=== PATIENT | male | born 1975 | race Caucasian/White ===

== ENCOUNTER 2020-04-09 09:18 | Inpatient (IN) | payer OTHER ==
[~2020-04-09] VITALS: Ht 180.3 cm; Wt 63.5 kg
--- NOTE | 2020-04-09 09:18 | Emergency Room Report ---
History of Present Illness General Source: Patient, EMS Present Illness HPI 44-year-old male with history of polysubstance use presents with diffuse abdominal pain since eating "bad [place] food" yesterday around 10 PM. Patient woke up this morning with epigastric pain, nausesa, and copious nonbloody diarrhea, nonbloody nonbilious vomiting, and nausea. Patient states he smoked meth in order to alleviate the pain, which did not work. Denies fever, flank pain, hematuria, melena, hematochezia, chest pain, cough, shortness of breath, rash, headache, visual changes or any other symptoms. He is unaware of any recent sick contacts. No recent travel or hospitalization. The patient's symptoms were gradual onset, severity was moderate, duration since 1 day. Quality: Gassy cramping, Past medical history: Polysubstance abuse Past surgical history: Denies Smoking: ++ Alcohol use: Denies Drug use: ++ Meth and marijuana Review of systems: CONST: No fevers or chills, No night sweats PULMONARY: No productive cough, No shortness of breath CARDIAC: No chest pain, No palpitations GI: ++ vomiting, ++ diarrhea , No melena_or_BRBPR : No dysuria, No hematuria, No discharge NEURO: No new_focal_weakness_or_numbness, No confusion, No vision changes 14 point Review of Systems is otherwise negative except per HPI Physical Exam: GENERAL: Awake_alert_ nontoxic, no acute distress Spo2 98% on RA -normal EYES: Extraocular muscles are intact. Conjunctivae clear. Lids without swelling ENT: External nose and ear normal_in_appearance. Oropharynx clear. Head_atraumatic, dry_oral_mucosa NECK: No JVD. No meningismus. No thyromegaly. Supple. Trachea midline RESP: Normal respiratory effort. Symmetric rise. No stridor. Clear_to_auscultation_No_rales_No_wheezes CARDIAC: Regular rate and regular rhytm. No_significant pedal edema. ABDOMEN: Soft. Nondistended. Epigastric TTP. Negative murphys sign_No_rebound_or_guarding. Negative Mayorga sign. Negative Rovsing's, negative psoas, negative obturator. No masses MSK: Normal muscle tone, without rigidity. Extremities without asymmetric defo rmity or swelling. SKIN: Warm and dry. No visible cyanosis or pallor NEUROLOGIC: Alert, oriented x3. Motor_and_sensation_grossly_intact. No truncal ataxia. Gait_normal Psych: Normal mood and affect, normal judgment and insight - COORDINATION OF CARE Case was discussed with: Patient Any labs and imaging that were ordered were interpreted as part of the medical decision making: Medical Decision Making/Plan: Differential diagnosis includes cholecystitis, choledocholithiasis, hepatitis, small bowel obstruction, volvulus, AAA, pancreatitis, atypical appendicitis, gastroparesis, gastritis, peptic ulcer disease, among others. Patient is well appearing with stable vital signs. Abdominal exam is non peritoneal with no guarding or rebound. Labs show pancreatitis. Lipase is greater than 1000. No concomitant acidosis. LFTs are within normal range. He is found to have nonspecific leukocytosis of 20. UDS is positive for meth and marijuana EKG shows normal sinus rhythm. No ischemia. NS, zofran, cipro, flagyl given. Pain was controlled with morphine. CT scan and right upper quadrant ultrasound were unremarkable. Found incidental renal cysts and kidney stone.. No obstructive uropathy. The patient denies any bloody stool and has no pain out of proportion to exam, and no significant risk factors for mesenteric ischemia such as atrial fibrillation or severe PAD/PVD (peripheral arterial / vascular disease), thus definitive workup to rule out mesenteric ischemia was not pursued. The patients symptoms are not consistent with ACS (acute coronary syndrome), symptoms are not exertional, EKG without obvious ischemic change. I spoke with Dr. Conway, and reviewed the patients presentation, workup, results, and treatment. They will admit the patient for further care and evaluation, and assume care of the patient at this time. Allergies: Coded Allergies: No Known Allergies (Unverified , 04/09/20) Physical Exam Sp02 EP Interpretation: reviewed, normal Medical Decision Making Diagnostic Impression: Primary Impression: Pancreatitis Additional Impressions: Polysubstance abuse Nausea & vomiting Methamphetamine abuse Marijuana abuse Renal cyst Kidney stone on right side EKG Diagnostic Results Troponin ordered: Yes When was troponin ordered?: Apr 09, 2020 EKG Time: 09:28 Rate: normal Rhythm: NSR ST Segments: no acute changes ASA given to the pt in ED: No PA Scribe Text 12-lead EKG (interpreted by me) Time: 0 952 Indication: Rhythm analysis Tracing visualized and Interpreted by me. Rhythm: Normal sinus rhythm Rate: 77 bpm QTc: 459 Morphology: No_significant_ST_elevations_or_depressions, No STEMI Impression: Normal_sinus_rhythm_without_significant_abnormality Rhythm Strip Diag. Results Rhythm Strip Time: 09:28 EP Interpretation: yes Rate: 84 Rhythm: NSR, no PVC's, no ectopy CT/MRI/US Diagnostic Results CT/MRI/US Diagnostic Results : Impression CT Abdomen Pelvis WO Contrast Findings: Lack of enteric contrast limits assessment of the GI tract. No evidence of diverticulosis or diverticulitis. The appendix is probably normal, not well-demonstrated due to opacity of body fat. The stomach is markedly distended, contains liquid, gas, and food. No definite small bowel distention. No free or loculated intraperitoneal gas or fluid is evident. The distal esophagus demonstrates mild wall thickening. Impression: Very limited assessment of the GI tract, due to lack of enteric contrast menstruation Markedly distended fluid, gas, and food filled stomach. Etiology/significance uncertain. Gastric outlet obstruction not completely excludable, although no definite obstructive lesion is demonstrated. Mild distal esophageal wall thickening, could indicate esophagitis No evidence of small bowel obstruction Nonobstructive left lower pole intrarenal calculus Minimal basilar pulmonary dependent atelectatic changes Diagnostic POCUS Bedside Ultrasound Diagnostics: Comment US ABD Complete Indication: Abdominal pain Findings: Gallbladder is unremarkable, without stones, wall thickening, nor pericholecystic fluid. Sonographic Mayorga's sign is negative. Common bile duct measures 4 mm in diameter. No intrahepatic biliary ductal dilatation. Liver demonstrates normal echogenicity, no focal abnormality. Portal vein and hepatic veins are patent. Pancreas is incompletely visualized due to overlying bowel gas, visualized portions are unremarkable. Spleen is unremarkable. Left kidney measures 12.6 cm in length. Right kidney measures 11.6 cm length. Both kidneys demonstrate normal echogenicity. There is no hydronephrosis. Right renal cyst is not clearly evident on the prior CT scan. Abdominal aorta is partially obscured by bowel gas, visualized portions are non-aneurysmal . Some debris is seen within the bladder Impression: Negative for gallstones, dilated bile ducts or other acute or significant abnormality Debris within the bladder. This is a nonspecific finding. Incidental finding right renal cyst Reevaluation Time: 10:01 Status: improved Disposition: ADMITTED INPATIENT Admit Decision Time: 10:30 Condition: Stable Scripts No Active Prescriptions or Reported Meds Lisa Rico D.O. Apr 09, 2020 09:18
[2020-04-09] MEDS ORDERED: Ketorolac 30mg Inj IV ONE (09:30)
[2020-04-09] MEDS ORDERED: Ciprofloxacin 500mg tab ORAL ONE (09:30)
[2020-04-09] MEDS ORDERED: metroNIDAZOLE 500mg tab ORAL ONE (09:30)
[2020-04-09 09:59] LABS: APPEARANCE,URINE CLEAR; BILIRUBIN, URINE NEGATIVE (NEGATIVE); GLUCOSE, URINE (UA) NEGATIVE (NEGATIVE); HEMATOCRIT 50.3 % (42.0-52.0); HEMOGLOBIN 16.2 G/DL (14.2-18.0); KETONES,URINE 1+ (NEGATIVE); LEUKOCYTE ESTERASE ,URINE 1+ (NEGATIVE); MEAN CORPUSCULAR VOLUME 99 FL (80-99); NITRITE,URINE NEGATIVE (NEGATIVE); PH,URINE 5 (4.5-8.0); PLATELET COUNT 545 K/UL (150-450); PROTEIN,URINE 1+ (NEGATIVE); RED CELL DISTRIBUTION WIDTH 13.6 % (11.6-14.8); UROBILINOGEN,URINE NORMAL MG/DL (0.0-1.0); WHITE BLOOD COUNT 20.7 K/UL (4.8-10.8)
[2020-04-09 10:00] VITALS: BP 139/91
[2020-04-09 10:02] LABS: COLOR,URINE YELLOW
[2020-04-09 10:09] LABS: ANION GAP 9 mmol/L (5-15); BLOOD UREA NITROGEN 12 mg/dL (7-18); CALCIUM 8.8 MG/DL (8.5-10.1); CARBON DIOXIDE 29 MMOL/L (21-32); CHLORIDE 104 MMOL/L (98-107); CREATININE 0.9 MG/DL (0.55-1.30); POTASSIUM 4.1 MMOL/L (3.5-5.1); SODIUM 142 MMOL/L (136-145)
[2020-04-09 10:14] LABS: ALANINE AMINOTRANSFERASE 32 U/L (12-78); ALBUMIN 4.2 G/DL (3.4-5.0); ALKALINE PHOSPHATASE 94 U/L (46-116); ASPARTATE AMINO TRANSFERASE 17 U/L (15-37); BILIRUBIN,TOTAL 0.4 MG/DL (0.2-1.0); CREATINE KINASE 72 U/L (26-308)
[2020-04-09] MEDS ORDERED: Morphine Sulfate 4mg/ml Inj (IV USE ONLY) IVP ONE (10:30)
--- NOTE | 2020-04-09 11:09 | Diagnostic Imaging Report ---
Indication: Diffuse abdominal pain, epigastric pain, nausea, diarrhea, vomiting since yesterday Technique: Spiral acquisitions obtained through the abdomen and pelvis. No oral contrast utilized, per emergency room physician request No IV contrast utilized, per emergency room physician request.. Multiplanar reconstructions were generated. Total dose length product 225 mGycm. CTDIvol(s) 3 mGy. Dose reduction achieved using automated exposure control Comparison: None Findings: Lack of enteric contrast limits assessment of the GI tract. No evidence of diverticulosis or diverticulitis. The appendix is probably normal, not well-demonstrated due to opacity of body fat. The stomach is markedly distended, contains liquid, gas, and food. No definite small bowel distention. No free or loculated intraperitoneal gas or fluid is evident. The distal esophagus demonstrates mild wall thickening. Lack of IV contrast limits assessment of the solid organs. The liver, gallbladder, bile ducts, pancreas, spleen, adrenals, right kidney are unremarkable. The left kidney demonstrates a punctate lower pole calyceal calculus. No ureteral calculi, hydronephrosis, or hydroureter. No pelvic mass or adenopathy. No retroperitoneal or mesenteric mass or adenopathy. There are posterior pulmonary dependent atelectatic changes. The bones are unremarkable. Impression: Very limited assessment of the GI tract, due to lack of enteric contrast menstruation Markedly distended fluid, gas, and food filled stomach. Etiology/significance uncertain. Gastric outlet obstruction not completely excludable, although no definite obstructive lesion is demonstrated. Mild distal esophageal wall thickening, could indicate esophagitis No evidence of small bowel obstruction Nonobstructive left lower pole intrarenal calculus Minimal basilar pulmonary dependent atelectatic changes The CT scanner at [facility] is accredited by the [employer] and the scans are performed using protocols designed to limit radiation exposure to as low as reasonably achievable to attain images of sufficient resolution adequate for diagnostic evaluation.
[2020-04-09 12:00] VITALS: BP 143/88
[2020-04-09 12:51] LABS: HEMATOCRIT 39.7 % (42.0-52.0); HEMOGLOBIN 13.2 G/DL (14.2-18.0); MEAN CORPUSCULAR VOLUME 99 FL (80-99); PLATELET COUNT 404 K/UL (150-450); RED BLOOD COUNT 4.01 M/UL (4.70-6.10); RED CELL DISTRIBUTION WIDTH 13.6 % (11.6-14.8); WHITE BLOOD COUNT 15.9 K/UL (4.8-10.8)
--- NOTE | 2020-04-09 13:17 | Diagnostic Imaging Report ---
Indication: Abdominal pain Technique: Gómez-scale and duplex images of the upper abdomen were obtained Comparison: No comparison sonograms. Reference made to CT scan earlier the same day Findings: Gallbladder is unremarkable, without stones, wall thickening, nor pericholecystic fluid. Sonographic Mayorga's sign is negative. Common bile duct measures 4 mm in diameter. No intrahepatic biliary ductal dilatation. Liver demonstrates normal echogenicity, no focal abnormality. Portal vein and hepatic veins are patent. Pancreas is incompletely visualized due to overlying bowel gas, visualized portions are unremarkable. Spleen is unremarkable. Left kidney measures 12.6 cm in length. Right kidney measures 11.6 cm length. Both kidneys demonstrate normal echogenicity. There is no hydronephrosis. Right renal cyst is not clearly evident on the prior CT scan. Abdominal aorta is partially obscured by bowel gas, visualized portions are non-aneurysmal . Some debris is seen within the bladder Impression: Negative for gallstones, dilated bile ducts or other acute or significant abnormality Debris within the bladder. This is a nonspecific finding. Incidental finding right renal cyst
[2020-04-09 14:02] VITALS: BP 109/71
--- NOTE | 2020-04-09 15:22 | General Progress Note ---
Subjective ROS Limited/Unobtainable: Yes Allergies: Coded Allergies: No Known Allergies (Unverified , 04/09/20) Objective Last 24 Hour Vital Signs Date Time Temp Pulse Resp B/P (MAP) Pulse Ox O2 Delivery O2 Flow Rate FiO2 04/09/20 14:02 98.4 85 16 109/71 99 Room Air 04/09/20 12:00 98.4 84 18 143/88 96 Room Air 04/09/20 10:00 98.8 89 18 139/91 97 Room Air 04/09/20 09:20 99.0 84 18 132/98 (109) 96 Room Air Laboratory Tests 04/09/20 09:30: White Blood Count 20.7H, Red Blood Count 5.10, Hemoglobin 16.2, Hematocrit 50.3, Mean Corpuscular Volume 99, Mean Corpuscular Hemoglobin 31.9H, Mean Corpuscular Hemoglobin Concent 32.3, Red Cell Distribution Width 13.6, Platelet Count 545H, Mean Platelet Volume 5.0L, Neutrophils (%) (Auto) , Lymphocytes (%) (Auto) , Monocytes (%) (Auto) , Eosinophils (%) (Auto) , Basophils (%) (Auto) , Differential Total Cells Counted 100, Neutrophils % (Manual) 80H, Lymphocytes % (Manual) 5L, Monocytes % (Manual) 3, Eosinophils % (Manual) 1, Basophils % (Manual) 0, Band Neutrophils 11H, Platelet Estimate IncreasedH, Platelet Morphology Normal, Red Blood Cell Morphology Normal, Prothrombin Time 11.4, Prothromb Time International Ratio 1.0, Activated Partial Thromboplast Time 28, Urine Color Yellow, Urine Appearance Clear, Urine pH 5, Urine Specific [place] 1.025, Urine Protein 1+H, Urine Glucose (UA) Negative, Urine Ketones 1+H, Urine Blood 2+H, Urine Nitrite Negative, Urine Bilirubin Negative, Urine Urobilinogen Normal, Urine Leukocyte Esterase 1+H, Urine RBC 2-4H, Urine WBC 0, Urine Squamous Epithelial Cells None, Urine Amorphous Sediment ModerateH, Urine Bacteria Few, Sodium Level 142, Potassium Level 4.1, Chloride Level 104, Carbon Dioxide Level 29, Anion Gap 9, Blood Urea Nitrogen 12, Creatinine 0.9, Estimat Glomerular Filtration Rate > 60, Glucose Level 90, Calcium Level 8.8, Total Bilirubin 0.4, Aspartate Amino Transf (AST/SGOT) 17, Alanine Aminotransferase (ALT/SGPT) 32, Alkaline Phosphatase 94, Total Creatine Kinase 72, Troponin I 0.000, Total Protein 8.5H, Albumin 4.2, Globulin 4.3, Albumin/Globulin Ratio 1.0, Lipase 1056H, Urine Opiates Screen Negative, Urine Barbiturates Screen Negative, Phencyclidine (PCP) Screen Negative, Urine Amphetamines Screen PositiveH, Urine Benzodiazepines Screen Negative, Urine Cocaine Screen Negative, Urine Marijuana (THC) Screen PositiveH 04/09/20 12:30: White Blood Count 15.9H, Red Blood Count 4.01L, Hemoglobin 13.2L, Hematocrit 39.7L, Mean Corpuscular Volume 99, Mean Corpuscular Hemoglobin 33.0H, Mean Corpuscular Hemoglobin Concent 33.4, Red Cell Distribution Width 13.6, Platelet Count 404, Mean Platelet Volume 5.2L, Neutrophils (%) (Auto) , Lymphocytes (%) (Auto) , Monocytes (%) (Auto) , Eosinophils (%) (Auto) , Basophils (%) (Auto) , Differential Total Cells Counted 100, Neutrophils % (Manual) 89H, Lymphocytes % (Manual) 2L, Monocytes % (Manual) 5, Eosinophils % (Manual) 0, Basophils % (Manual) 0, Band Neutrophils 4, Platelet Estimate Adequate, Platelet Morphology Normal, Red Blood Cell Morphology Normal Height (Feet): 6 Weight (Pounds): 140 General Appearance: alert EENT: PERRL/EOMI Neck: supple Cardiovascular: normal rate Respiratory/Chest: decreased breath sounds Abdomen: soft, hypoactive bowel sounds, tender Extremities: non-tender Assessment/Plan Assessment/Plan: Primary Impression: Pancreatitis Esophagitis Polysubstance abuse Nausea & vomiting Methamphetamine abuse Marijuana abuse Renal cyst Kidney stone on right side ? gastric out let obstruction gastroenteritis npo ivf pain control ppi bid repeat labs EGD when more stable Vitaliy Weaver MD Apr 09, 2020 15:22
[2020-04-09 16:20] VITALS: BP 112/76
[2020-04-09] MEDS ORDERED: Morphine Sulfate 2mg/ml Inj(IV/IM USE ONLY) IVP PRN (17:15)
[2020-04-09] MEDS: D5 1/2NS 1,000 ML IV SCH (17:39)
--- NOTE | 2020-04-09 18:30 | History and Physical Report ---
DATE OF ADMISSION: 04/09/2020 TIME SEEN: 2 p.m. HOME ASSESSMENT NURSE: Vitaliy Weaver MD CHIEF COMPLAINT: Diarrhea, abdominal pain, methamphetamine use, pancreatitis, esophagitis. BRIEF HISTORY: This is a 44-year-old male presented to [facility] with above-mentioned diagnoses. Currently lethargic in bed, not really responding to questions. REVIEW OF SYSTEMS: Unavailable. PAST MEDICAL HISTORY: Includes drug abuse, right kidney stone. PAST SURGICAL HISTORY: Unknown. MEDICATIONS: Include Zofran, morphine, metronidazole, Cipro, ketorolac. ALLERGIES: Denies. SOCIAL HISTORY: Unable to obtain due to patient's lethargy. PHYSICAL EXAMINATION: GENERAL: Lethargic in bed, not really answering questions. VITAL SIGNS: Temperature is 98 degrees, pulse 85, respirations 16, blood pressure 109/71. CARDIOVASCULAR: No murmur. LUNGS: Distant and clear. ABDOMEN: Bowel sounds positive. Nontender, nondistended. EXTREMITIES: No cyanosis, clubbing, or edema. NEUROLOGIC: Patient moves all extremities, slightly weak. LABORATORY AND DIAGNOSTIC DATA: Labs at this time show white count 15.9, hemoglobin and hematocrit 13/39, platelets 404. BMP is normal. Troponin 0.00. Total protein 0.5. Lipase 1056. INR is 1.0. Urine tox positive for marijuana, amphetamines. Urinalysis show 1+ leukocyte esterase. ASSESSMENT: 1. Diarrhea. 2. Abdominal pain. 3. UTI. 4. Drug abuse. 5. Leukocytosis. 6. Anemia. 7. Pancreatitis. 8. Esophagitis. PLAN: 1. NPO. 2. IV fluids. 3. Antibiotics as ordered. 4. Antiemetics. 5. Pain control. 6. Resume home medications. 7. Dr. Alegria, Dr. Weaver to consult. Isiah Conway D.O. DR: ADALBERTO JOB#: [id number] CC:
[2020-04-09 20:00] VITALS: BP 117/81
[2020-04-09] MEDS: Pantoprazole Inj IVP SCH (22:31)
[2020-04-09] MEDS: Heparin 5000 units/ml inj SUBQ SCH (22:31)
[2020-04-10] VITALS: BP 140/77
[2020-04-10 04:00] VITALS: BP 127/81
[2020-04-10 05:46] VITALS: BP 127/81
[2020-04-10 08:42] LABS: BASOPHILS % (AUTO) 0.4 % (0.0-2.0); EOSINOPHILS % (AUTO) 1.6 % (0.0-3.0); HEMOGLOBIN 13.8 G/DL (14.2-18.0); LYMPHOCYTES % (AUTO) 12.9 % (20.0-45.0); MEAN CORPUSCULAR VOLUME 98 FL (80-99); MONOCYTES % (AUTO) 6.5 % (1.0-10.0); NEUTROPHILS % (AUTO) 78.5 % (45.0-75.0); PLATELET COUNT 391 K/UL (150-450); RED CELL DISTRIBUTION WIDTH 13.3 % (11.6-14.8); WHITE BLOOD COUNT 9.8 K/UL (4.8-10.8)
[2020-04-10] MEDS: Pantoprazole Inj IVP SCH ×2 (09:00→20:47)
[2020-04-10] MEDS: Heparin 5000 units/ml inj SUBQ SCH ×2 (09:00→21:15)
[2020-04-10 09:02] LABS: ALANINE AMINOTRANSFERASE 13 U/L (12-78); ALBUMIN 2.9 G/DL (3.4-5.0); ALBUMIN/GLOBULIN RATIO 1.1 (1.0-2.7); ALKALINE PHOSPHATASE 71 U/L (46-116); ANION GAP 5 mmol/L (5-15); ASPARTATE AMINO TRANSFERASE 14 U/L (15-37); BILIRUBIN,TOTAL 0.3 MG/DL (0.2-1.0); BLOOD UREA NITROGEN 7 mg/dL (7-18); CALCIUM 7.7 MG/DL (8.5-10.1); CARBON DIOXIDE 30 MMOL/L (21-32); CHLORIDE 102 MMOL/L (98-107); CHOLESTEROL 124 MG/DL (< 200); CREATININE 0.8 MG/DL (0.55-1.30); HDL CHOLESTEROL 42 MG/DL (40-60); SODIUM 137 MMOL/L (136-145); TRIGLYCERIDES 79 MG/DL (30-150)
--- NOTE | 2020-04-10 09:16 | General Progress Note ---
Subjective Constitutional: Reports: weakness Allergies: Coded Allergies: No Known Allergies (Unverified , 04/09/20) All Systems: reviewed and negative except above Subjective sleepy calm Objective Last 24 Hour Vital Signs Date Time Temp Pulse Resp B/P (MAP) Pulse Ox O2 Delivery O2 Flow Rate FiO2 04/10/20 04:00 97.0 81 20 127/81 (96) 98 04/10/20 00:00 98.2 83 20 140/77 (98) 96 04/09/20 20:14 Room Air 04/09/20 20:00 98.1 79 20 117/81 (93) 96 04/09/20 16:41 Room Air 04/09/20 16:20 97.7 86 20 112/76 (88) 98 04/09/20 16:00 98.2 79 18 119/76 98 Room Air 04/09/20 14:02 98.4 85 16 109/71 99 Room Air 04/09/20 12:00 98.4 84 18 143/88 96 Room Air 04/09/20 10:00 98.8 89 18 139/91 97 Room Air 04/09/20 09:20 99.0 84 18 132/98 (109) 96 Room Air Laboratory Tests 04/09/20 09:30: White Blood Count 20.7H, Red Blood Count 5.10, Hemoglobin 16.2, Hematocrit 50.3, Mean Corpuscular Volume 99, Mean Corpuscular Hemoglobin 31.9H, Mean Corpuscular Hemoglobin Concent 32.3, Red Cell Distribution Width 13.6, Platelet Count 545H, Mean Platelet Volume 5.0L, Neutrophils (%) (Auto) , Lymphocytes (%) (Auto) , Monocytes (%) (Auto) , Eosinophils (%) (Auto) , Basophils (%) (Auto) , Differential Total Cells Counted 100, Neutrophils % (Manual) 80H, Lymphocytes % (Manual) 5L, Monocytes % (Manual) 3, Eosinophils % (Manual) 1, Basophils % (Manual) 0, Band Neutrophils 11H, Platelet Estimate IncreasedH, Platelet Morphology Normal, Red Blood Cell Morphology Normal, Prothrombin Time 11.4, Prothromb Time International Ratio 1.0, Activated Partial Thromboplast Time 28, Urine Color Yellow, Urine Appearance Clear, Urine pH 5, Urine Specific [place] 1.025, Urine Protein 1+H, Urine Glucose (UA) Negative, Urine Ketones 1+H, Urine Blood 2+H, Urine Nitrite Negative, Urine Bilirubin Negative, Urine Urobilinogen Normal, Urine Leukocyte Esterase 1+H, Urine RBC 2-4H, Urine WBC 0, Urine Squamous Epithelial Cells None, Urine Amorphous Sediment ModerateH, Urine B acteria Few, Sodium Level 142, Potassium Level 4.1, Chloride Level 104, Carbon Dioxide Level 29, Anion Gap 9, Blood Urea Nitrogen 12, Creatinine 0.9, Estimat Glomerular Filtration Rate > 60, Glucose Level 90, Calcium Level 8.8, Total Bilirubin 0.4, Aspartate Amino Transf (AST/SGOT) 17, Alanine Aminotransferase (ALT/SGPT) 32, Alkaline Phosphatase 94, Total Creatine Kinase 72, Troponin I 0.000, Total Protein 8.5H, Albumin 4.2, Globulin 4.3, Albumin/Globulin Ratio 1.0, Lipase 1056H, Urine Opiates Screen Negative, Urine Barbiturates Screen Negative, Phencyclidine (PCP) Screen Negative, Urine Amphetamines Screen PositiveH, Urine Benzodiazepines Screen Negative, Urine Cocaine Screen Negative, Urine Marijuana (THC) Screen PositiveH 04/09/20 12:30: White Blood Count 15.9H, Red Blood Count 4.01L, Hemoglobin 13.2L, Hematocrit 39.7L, Mean Corpuscular Volume 99, Mean Corpuscular Hemoglobin 33.0H, Mean Corpuscular Hemoglobin Concent 33.4, Red Cell Distribution Width 13.6, Platelet Count 404, Mean Platelet Volume 5.2L, Neutrophils (%) (Auto) , Lymphocytes (%) (Auto) , Monocytes (%) (Auto) , Eosinophils (%) (Auto) , Basophils (%) (Auto) , Differential Total Cells Counted 100, Neutrophils % (Manual) 89H, Lymphocytes % (Manual) 2L, Monocytes % (Manual) 5, Eosinophils % (Manual) 0, Basophils % (Manual) 0, Band Neutrophils 4, Platelet Estimate Adequate, Platelet Morphology Normal, Red Blood Cell Morphology Normal 04/10/20 07:55: White Blood Count 9.8, Red Blood Count 4.30L, Hemoglobin 13.8L, Hematocrit 42.0, Mean Corpuscular Volume 98, Mean Corpuscular Hemoglobin 32.0H, Mean Corpuscular Hemoglobin Concent 32.8, Red Cell Distribution Width 13.3, Platelet Count 391, Mean Platelet Volume 5.4L, Neutrophils (%) (Auto) 78.5H, Lymphocytes (%) (Auto) 12.9L, Monocytes (%) (Auto) 6.5, Eosinophils (%) (Auto) 1.6, Basophils (%) (Auto) 0.4, Sodium Level 137, Potassium Level 4.0, Chloride Level 102, Carbon Dioxide Level 30, Anion Gap 5, Blood Urea Nitrogen 7, Creatinine 0.8, Estimat Glomerular Filtration Rate > 60, Glucose Level 85, Calcium Level 7.7L, Total Bilirubin 0.3, Aspartate Amino Transf (AST/SGOT) 14L, Alanine Aminotransferase (ALT/SGPT) 13, Alkaline Phosphatase 71, Total Protein 5.6#L, Albumin 2.9L, Globulin 2.7, Albumin/Globulin Ratio 1.1, Triglycerides Level 79, Cholesterol Level 124, LDL Cholesterol 67, HDL Cholesterol 42, Cholesterol/HDL Ratio 3.0L, Amylase Level 137H Height (Feet): 5 Height (Inches): 11.00 Weight (Pounds): 140 General Appearance: lethargic EENT: normal ENT inspection Neck: normal alignment Cardiovascular: normal peripheral pulses, normal rate, regular rhythm Respiratory/Chest: chest wall non-tender, lungs clear, normal breath sounds Abdomen: normal bowel sounds, non tender, soft Extremities: normal inspection Edema: no edema noted Arm (L), no edema noted Arm (R), no edema noted Leg (L), no edema noted Leg (R), no edema noted Pedal (L), no edema noted Pedal (R), no edema noted Generalized Neurologic: motor weakness Skin: normal pigmentation, warm/dry Assessment/Plan Problem List: (1) UTI (urinary tract infection) ICD Codes: N39.0 - Urinary tract infection, site not specified SNOMED: 51085928 (2) Abdominal pain ICD Codes: R10.9 - Unspecified abdominal pain SNOMED: 04344464 (3) Kidney stone on right side ICD Codes: N20.0 - Calculus of kidney SNOMED: 55078435 (4) Pancreatitis ICD Codes: K85.90 - Acute pancreatitis without necrosis or infection, unspecified SNOMED: 54048936 (5) Methamphetamine abuse ICD Codes: F15.10 - Other stimulant abuse, uncomplicated SNOMED: 930104513 Status: unchanged Assessment/Plan: detox pain control abx cbc bmp am Isiah Conway DO Apr 10, 2020 09:16
[2020-04-10] MEDS: D5 1/2NS 1,000 ML IV SCH (09:55)
--- NOTE | 2020-04-10 10:54 | General Progress Note ---
Subjective ROS Limited/Unobtainable: Yes Allergies: Coded Allergies: No Known Allergies (Unverified , 04/09/20) Objective Last 24 Hour Vital Signs Date Time Temp Pulse Resp B/P (MAP) Pulse Ox O2 Delivery O2 Flow Rate FiO2 04/10/20 09:00 Room Air 04/10/20 04:00 97.0 81 20 127/81 (96) 98 04/10/20 00:00 98.2 83 20 140/77 (98) 96 04/09/20 20:14 Room Air 04/09/20 20:00 98.1 79 20 117/81 (93) 96 04/09/20 16:41 Room Air 04/09/20 16:20 97.7 86 20 112/76 (88) 98 04/09/20 16:00 98.2 79 18 119/76 98 Room Air 04/09/20 14:02 98.4 85 16 109/71 99 Room Air 04/09/20 12:00 98.4 84 18 143/88 96 Room Air Laboratory Tests 04/09/20 12:30: White Blood Count 15.9H, Red Blood Count 4.01L, Hemoglobin 13.2L, Hematocrit 39.7L, Mean Corpuscular Volume 99, Mean Corpuscular Hemoglobin 33.0H, Mean Corpuscular Hemoglobin Concent 33.4, Red Cell Distribution Width 13.6, Platelet Count 404, Mean Platelet Volume 5.2L, Neutrophils (%) (Auto) , Lymphocytes (%) (Auto) , Monocytes (%) (Auto) , Eosinophils (%) (Auto) , Basophils (%) (Auto) , Differential Total Cells Counted 100, Neutrophils % (Manual) 89H, Lymphocytes % (Manual) 2L, Monocytes % (Manual) 5, Eosinophils % (Manual) 0, Basophils % (Manual) 0, Band Neutrophils 4, Platelet Estimate Adequate, Platelet Morphology Normal, Red Blood Cell Morphology Normal 04/10/20 07:55: White Blood Count 9.8, Red Blood Count 4.30L, Hemoglobin 13.8L, Hematocrit 42.0, Mean Corpuscular Volume 98, Mean Corpuscular Hemoglobin 32.0H, Mean Corpuscular Hemoglobin Concent 32.8, Red Cell Distribution Width 13.3, Platelet Count 391, Mean Platelet Volume 5.4L, Neutrophils (%) (Auto) 78.5H, Lymphocytes (%) (Auto) 12.9L, Monocytes (%) (Auto) 6.5, Eosinophils (%) (Auto) 1.6, Basophils (%) (Auto) 0.4, Sodium Level 137, Potassium Level 4.0, Chloride Level 102, Carbon Dioxide Level 30, Anion Gap 5, Blood Urea Nitrogen 7, Creatinine 0.8, Estimat Glomerular Filtration Rate > 60, Glucose Level 85, Calcium Level 7.7L, Total Bilirubin 0.3, Aspartate Amino Transf (AST/SGOT) 14L, Alanine Aminotransferase (ALT/SGPT) 13, Alkaline Phosphatase 71, Total Protein 5.6#L, Albumin 2.9L, Globulin 2.7, Albumin/Globulin Ratio 1.1, Triglycerides Level 79, Cholesterol Level 124, LDL Cholesterol 67, HDL Cholesterol 42, Cholesterol/HDL Ratio 3.0L, Amylase Level 137H Height (Feet): 5 Height (Inches): 11.00 Weight (Pounds): 140 General Appearance: alert EENT: normal ENT inspection Neck: normal alignment Cardiovascular: normal rate Respiratory/Chest: lungs clear Abdomen: soft, hypoactive bowel sounds, tender Extremities: non-tender Assessment/Plan Status: unchanged Assessment/Plan: Primary Impression: Pancreatitis Esophagitis Polysubstance abuse Nausea & vomiting Methamphetamine abuse Marijuana abuse Renal cyst Kidney stone on right side ? gastric out let obstruction gastroenteritis \ ivf pain control ppi bid repeat labs wants to eat o/w will leave AMA will Vitaliy Allen MD Apr 10, 2020 10:54
[2020-04-10 12:00] VITALS: BP 100/63
--- NOTE | 2020-04-10 13:27 | Consultation ---
History of Present Illness General Date patient seen: Apr 10, 2020 Chief Complaint: Nausea, Vomiting, and Diarrhea Present Illness HPI 44 y/o M with hx of polysubstance use (meth and THC), R nephrolithiasis, tobacco abuse presented to ED on 04/09/20 with diffuse abd pain. Reported it started after eating "bad indian food" the day prior to admission at 10pm. Denied f/c, flank pain, hematuria, melena, hematochezia, CP, SOB, SOB, rash, JESUS, sick contacts, recent travel. Allergies: Coded Allergies: No Known Allergies (Unverified , 04/09/20) Medication History No Active Prescriptions or Reported Meds Patient History Healthcare decision maker Resuscitation status Advanced Directive on File Patient History Narrative Pmhx: as above Shx: Smoking: ++ Alcohol use: Denies Drug use: ++ Meth and marijuana Fhx: non contributory Review of Systems All Other Systems: negative except mentioned in HPI Physical Exam Physical Exam Narrative GENERAL: Lethargic in bed, not really answering questions. CARDIOVASCULAR: No murmur. LUNGS: Distant and clear. ABDOMEN: Bowel sounds positive. Nontender, nondistended. EXTREMITIES: No cyanosis, clubbing, or edema. NEUROLOGIC: Patient moves all extremities, slightly weak. Last 24 Hour Vital Signs Date Time Temp Pulse Resp B/P (MAP) Pulse Ox O2 Delivery O2 Flow Rate FiO2 04/10/20 12:00 98.1 67 20 100/63 (75) 98 04/10/20 09:00 Room Air 04/10/20 04:00 97.0 81 20 127/81 (96) 98 04/10/20 00:00 98.2 83 20 140/77 (98) 96 04/09/20 20:14 Room Air 04/09/20 20:00 98.1 79 20 117/81 (93) 96 04/09/20 16:41 Room Air 04/09/20 16:20 97.7 86 20 112/76 (88) 98 04/09/20 16:00 98.2 79 18 119/76 98 Room Air 04/09/20 14:02 98.4 85 16 109/71 99 Room Air Laboratory Tests Test 04/10/20 07:55 White Blood Count 9.8 K/UL (4.8-10.8) Red Blood Count 4.30 M/UL (4.70-6.10) L Hemoglobin 13.8 G/DL (14.2-18.0) L Hematocrit 42.0 % (42.0-52.0) Mean Corpuscular Volume 98 FL (80-99) Mean Corpuscular Hemoglobin 32.0 PG (27.0-31.0) H Mean Corpuscular Hemoglobin Concent 32.8 G/DL (32.0-36.0) Red Cell Distribution Width 13.3 % (11.6-14.8) Platelet Count 391 K/UL (150-450) Mean Platelet Volume 5.4 FL (6.5-10.1) L Neutrophils (%) (Auto) 78.5 % (45.0-75.0) H Lymphocytes (%) (Auto) 12.9 % (20.0-45.0) L Monocytes (%) (Auto) 6.5 % (1.0-10.0) Eosinophils (%) (Auto) 1.6 % (0.0-3.0) Basophils (%) (Auto) 0.4 % (0.0-2.0) Sodium Level 137 MMOL/L (136-145) Potassium Level 4.0 MMOL/L (3.5-5.1) Chloride Level 102 MMOL/L (98-107) Carbon Dioxide Level 30 MMOL/L (21-32) Anion Gap 5 mmol/L (5-15) Blood Urea Nitrogen 7 mg/dL (7-18) Creatinine 0.8 MG/DL (0.55-1.30) Estimat Glomerular Filtration Rate > 60 mL/min (>60) Glucose Level 85 MG/DL (74-106) Calcium Level 7.7 MG/DL (8.5-10.1) L Total Bilirubin 0.3 MG/DL (0.2-1.0) Aspartate Amino Transf (AST/SGOT) 14 U/L (15-37) L Alanine Aminotransferase (ALT/SGPT) 13 U/L (12-78) Alkaline Phosphatase 71 U/L (46-116) Total Protein 5.6 G/DL (6.4-8.2) #L Albumin 2.9 G/DL (3.4-5.0) L Globulin 2.7 g/dL Albumin/Globulin Ratio 1.1 (1.0-2.7) Triglycerides Level 79 MG/DL (30-150) Cholesterol Level 124 MG/DL (< 200) LDL Cholesterol 67 mg/dL (<100) HDL Cholesterol 42 MG/DL (40-60) Cholesterol/HDL Ratio 3.0 (3.3-4.4) L Amylase Level 137 U/L (25-115) H Microbiology Date/Time Source Procedure Growth Status 04/09/20 14:14 Rectum Received Height (Feet): 5 Height (Inches): 11.00 Weight (Pounds): 140 Medications Current Medications Medications (Trade) Dose Ordered Sig/Elmo Route PRN Reason Start Time Stop Time Status Last Admin Dose Admin Dextrose/Sodium Chloride 1,000 ml @ 60 mls/hr [id number] IV 04/09/20 17:15 05/09/20 17:14 04/09/20 17:39 Heparin Sodium (Porcine) (Heparin 5000 units/ml) 5,000 units EVERY 12 HOURS SUBQ 04/09/20 21:00 05/24/20 20:59 Morphine Sulfate (Morphine Sulfate) 2 mg Q4H PRN IVP For Pain 04/09/20 17:15 04/16/20 17:14 Ondansetron HCl (Zofran) 4 mg Q4H PRN IVP Nausea & Vomiting 04/09/20 17:15 05/09/20 17:14 Pantoprazole (Protonix) 40 mg EVERY 12 HOURS IVP 04/09/20 21:00 05/09/20 20:59 Assessment/Plan Assessment/Plan: Abx: Ciprofloxacin x1 04/09 Flagyl x1 04/09 Assessment: COVID19 n eg x1 (04/09 rapid COVID PCR neg) Acute pancreatitis -CT abd/p: Very limited assessment of the GI tract, due to lack of enteric contrast. Markedly distended fluid, gas, and food filled stomach. Etiology/significance uncertain. Gastric outlet obstruction not completely excludable, although no definite obstructive lesion is demonstrated. Mild distal esophageal wall thickening, could indicate esophagitis. No evidence of small bowel obstruction. Nonobstructive left lower pole intrarenal calculus. Minimal basilar pulmonary dependent atelectatic changes -Abd US : Negative for gallstones, dilated bile ducts or other acute or signif icant abnormality Debris within the bladder. This is a nonspecific finding. Incidental finding right renal cyst Afebrile Leukocytosis, SP -u/a neg UDS + amphetamines, THC polysubstance use (meth and THC) R nephrolithiasis tobacco abuse Plan: -Continue to monitor off abx -f/u cx -Monitor CBC/CMP, temperatures -GI f/u Thank you for consulting [facility]. Will continue to follow along with you. Discussed with LAINE. Jaz Crockett M.D. Apr 10, 2020 13:27
--- NOTE | 2020-04-10 15:12 | Cardiology Report ---
APPROVED REPORT EKG Measurement Heart [id number] OR [id number] <Conclusion> Normal sinus rhythm Normal ECG
[2020-04-10] MEDS ORDERED: Haloperidol 5mg/ml Inj IM PRN (20:00)
[2020-04-10] MEDS ORDERED: LORazepam 1mg tab ORAL PRN (20:00)
--- NOTE | 2020-04-10 22:40 | Psychiatric Progress Note ---
Psychiatry Progress Note Psychiatry Progress Note Medications Current Medications Medications (Trade) Dose Ordered Sig/Elmo Route PRN Reason Start Time Stop Time Status Last Admin Dose Admin Dextrose/Sodium Chloride 1,000 ml @ 60 mls/hr [id number] IV 04/09/20 17:15 05/09/20 17:14 04/09/20 17:39 Haloperidol Lactate (Haldol) 5 mg Q6H PRN IM Agitation 04/10/20 20:00 05/25/20 19:59 Heparin Sodium (Porcine) (Heparin 5000 units/ml) 5,000 units EVERY 12 HOURS SUBQ 04/09/20 21:00 05/24/20 20:59 Lorazepam (Ativan) 2 mg Q6H PRN ORAL For Anxiety 04/10/20 20:00 04/17/20 19:59 Morphine Sulfate (Morphine Sulfate) 2 mg Q4H PRN IVP For Pain 04/09/20 17:15 04/16/20 17:14 Ondansetron HCl (Zofran) 4 mg Q4H PRN IVP Nausea & Vomiting 04/09/20 17:15 05/09/20 17:14 Pantoprazole (Protonix) 40 mg EVERY 12 HOURS IVP 04/09/20 21:00 05/09/20 20:59 Risperidone (RisperDAL) 2 mg BEDTIME ORAL 04/10/20 21:00 05/25/20 20:59 Neurological/Psychiatric: Reports: anxiety, depressed Allergies: Coded Allergies: No Known Allergies (Unverified , 04/09/20) Objective Data Height (Feet): 5 Height (Inches): 11.00 Weight (Pounds): 140 General Appearance: WD/WN, no apparent distress, alert Additional Comments: Alert, oriented to self, place. Mood is angry. Affect is blunted, congruent with mood. Thought process is concrete. Thought content, no suicidal or homicidal ideation. Cognition is impaired. Insight and judgment limited. ASSESSMENT: [place] I Substance use disorder. Polysubstance dependence. Psychotic disorder [place] II Deferred. [place] III As above. [place] IV Low. [place] V 20. PLAN: 1. We will start the patient on risperidone. 2. Provide the patient with reality orientation and supportive therapy. Assessment/Plan Status: unchanged Sourav Smith MD Apr 10, 2020 22:40
[2020-04-11] VITALS: BP 115/71
--- NOTE | 2020-04-11 01:15 | Consultation ---
DATE OF CONSULTATION: 04/10/2020 CONSULTING PHYSICIAN: Sourav Smith MD HISTORY OF PRESENT ILLNESS: This is a 44-year-old male with a history of substance use disorder who has been admitted to the hospital for medical stabilization. Patient has a history of methamphetamine use as well as marijuana, esophagitis, and pancreatitis. Patient is agitated, confused, delusional, uncooperative with the examination and was covering his head with a blanket. PAST PSYCHIATRIC HISTORY: Not significant. No psychiatric hospitalization. No suicide attempt. PAST MEDICAL HISTORY: Pancreatitis. ALLERGIES: No known drug allergies. SUBSTANCE ABUSE HISTORY: Positive for illicit drugs including methamphetamine. MENTAL STATUS EXAMINATION: Alert, oriented to self, place. Mood is angry. Affect is blunted, congruent with mood. Thought process is concrete. Thought content, no suicidal or homicidal ideation. Cognition is impaired. Insight and judgment limited. ASSESSMENT: [place] I Substance use disorder. Polysubstance dependence. Psychotic disorder [place] II Deferred. [place] III As above. [place] IV Low. [place] V 20. PLAN: 1. We will start the patient on risperidone. 2. Provide the patient with reality orientation and supportive therapy. Sourav Smith M.D. DR: JAYLYN JOB#: [id number] CC:
[2020-04-11] MEDS: D5 1/2NS 1,000 ML IV SCH (02:35)
[2020-04-11 04:00] VITALS: BP 123/69
[2020-04-11] MEDS: Pantoprazole Inj IVP SCH (08:41)
[2020-04-11] MEDS: Heparin 5000 units/ml inj SUBQ SCH (08:41)
--- NOTE | 2020-04-11 10:09 | General Progress Note ---
Subjective ROS Limited/Unobtainable: Yes Allergies: Coded Allergies: No Known Allergies (Unverified , 04/09/20) Objective Last 24 Hour Vital Signs Date Time Temp Pulse Resp B/P (MAP) Pulse Ox O2 Delivery O2 Flow Rate FiO2 04/11/20 09:00 Room Air 04/11/20 04:00 98.0 68 20 123/69 (87) 95 04/11/20 00:00 97.9 75 20 115/71 (86) 98 04/10/20 21:00 Room Air 04/10/20 12:00 98.1 67 20 100/63 (75) 98 Intake and Output 04/10/20 04/11/20 19:00 07:00 Intake Total 500 ml 480 ml Balance 500 ml 480 ml Intake Oral 500 ml 480 ml # Voids 3 Height (Feet): 5 Height (Inches): 11.00 Weight (Pounds): 140 General Appearance: alert EENT: normal ENT inspection Neck: supple Cardiovascular: normal rate Respiratory/Chest: decreased breath sounds Abdomen: normal bowel sounds, non tender, soft Extremities: non-tender Assessment/Plan Status: unchanged Assessment/Plan: Primary Impression: Pancreatitis Esophagitis Polysubstance abuse Nausea & vomiting Methamphetamine abuse Marijuana abuse Renal cyst Kidney stone on right side ? gastric out let obstruction gastroenteritis \ ivf pain control ppi bid repeat labs refuses labs ok for dc GI stand point will Vitaliy Allen MD Apr 11, 2020 10:09
[2020-04-11 11:22] LABS: BASOPHILS % (AUTO) 0.9 % (0.0-2.0); EOSINOPHILS % (AUTO) 1.7 % (0.0-3.0); HEMATOCRIT 43.9 % (42.0-52.0); LYMPHOCYTES % (AUTO) 22.8 % (20.0-45.0); MEAN CORPUSCULAR VOLUME 96 FL (80-99); MONOCYTES % (AUTO) 7.5 % (1.0-10.0); NEUTROPHILS % (AUTO) 67.2 % (45.0-75.0); PLATELET COUNT 478 K/UL (150-450); RED BLOOD COUNT 4.57 M/UL (4.70-6.10); RED CELL DISTRIBUTION WIDTH 13.7 % (11.6-14.8); WHITE BLOOD COUNT 7.8 K/UL (4.8-10.8)
[2020-04-11 11:27] LABS: AMYLASE 224 U/L (25-115)
[2020-04-11 11:31] LABS: ALANINE AMINOTRANSFERASE 18 U/L (12-78); ALBUMIN 3.1 G/DL (3.4-5.0); ALKALINE PHOSPHATASE 89 U/L (46-116); ANION GAP 7 mmol/L (5-15); ASPARTATE AMINO TRANSFERASE 14 U/L (15-37); BILIRUBIN,TOTAL 0.2 MG/DL (0.2-1.0); BLOOD UREA NITROGEN 15 mg/dL (7-18); CALCIUM 8.7 MG/DL (8.5-10.1); CARBON DIOXIDE 30 MMOL/L (21-32); CHLORIDE 100 MMOL/L (98-107); CREATININE 0.9 MG/DL (0.55-1.30); POTASSIUM 3.9 MMOL/L (3.5-5.1); SODIUM 137 MMOL/L (136-145)
--- NOTE | 2020-04-11 13:59 | General Progress Note ---
Subjective Constitutional: Reports: weakness Allergies: Coded Allergies: No Known Allergies (Unverified , 04/09/20) All Systems: reviewed and negative except above Subjective sleepy calm Objective Last 24 Hour Vital Signs Date Time Temp Pulse Resp B/P (MAP) Pulse Ox O2 Delivery O2 Flow Rate FiO2 04/11/20 09:00 Room Air 04/11/20 04:00 98.0 68 20 123/69 (87) 95 04/11/20 00:00 97.9 75 20 115/71 (86) 98 04/10/20 21:00 Room Air Intake and Output 04/10/20 04/11/20 19:00 07:00 Intake Total 500 ml 480 ml Balance 500 ml 480 ml Intake Oral 500 ml 480 ml # Voids 3 Laboratory Tests 04/11/20 10:35: White Blood Count 7.8, Red Blood Count 4.57L, Hemoglobin 15.0, Hematocrit 43.9, Mean Corpuscular Volume 96, Mean Corpuscular Hemoglobin 32.7H, Mean Corpuscular Hemoglobin Concent 34.1, Red Cell Distribution Width 13.7, Platelet Count 478H, Mean Platelet Volume 5.2L, Neutrophils (%) (Auto) 67.2, Lymphocytes (%) (Auto) 22.8, Monocytes (%) (Auto) 7.5, Eosinophils (%) (Auto) 1.7, Basophils (%) (Auto) 0.9, Sodium Level 137, Potassium Level 3.9, Chloride Level 100, Carbon Dioxide Level 30, Anion Gap 7, Blood Urea Nitrogen 15, Creatinine 0.9, Estimat Glomerular Filtration Rate > 60, Glucose Level 108H, Calcium Level 8.7, Total Bilirubin 0.2, Aspartate Amino Transf (AST/SGOT) 14L, Alanine Aminotransferase (ALT/SGPT) 18, Alkaline Phosphatase 89, Total Protein 6.1L, Albumin 3.1L, Globulin 3.0, Albumin/Globulin Ratio 1.0, Amylase Level 224H, Lipase 1203H Height (Feet): 5 Height (Inches): 11.00 Weight (Pounds): 140 General Appearance: lethargic EENT: normal ENT inspection Neck: normal alignment Cardiovascular: normal peripheral pulses, normal rate, regular rhythm Respiratory/Chest: chest wall non-tender, lungs clear, normal breath sounds Abdomen: normal bowel sounds, non tender, soft Extremities: normal inspection Edema: no edema noted Arm (L), no edema noted Arm (R), no edema noted Leg (L), no edema noted Leg (R), no edema noted Pedal (L), no edema noted Pedal (R), no edema noted Generalized Neurologic: motor weakness Skin: normal pigmentation, warm/dry Assessment/Plan Problem List: (1) UTI (urinary tract infection) ICD Codes: N39.0 - Urinary tract infection, site not specified SNOMED: 70866015 (2) Abdominal pain ICD Codes: R10.9 - Unspecified abdominal pain SNOMED: 11818756 (3) Kidney stone on right side ICD Codes: N20.0 - Calculus of kidney SNOMED: 41011354 (4) Pancreatitis ICD Codes: K85.90 - Acute pancreatitis without necrosis or infection, unspecified SNOMED: 62357322 (5) Methamphetamine abuse ICD Codes: F15.10 - Other stimulant abuse, uncomplicated SNOMED: 822953854 Status: unchanged Assessment/Plan: detox pain control abx cbc bmp am Isiah Conway DO Apr 11, 2020 13:59
--- NOTE | 2020-04-11 17:12 | Infectious Diseases Prog Note ---
Assessment/Plan Assessment: COVID19 n eg x1 (04/09 rapid COVID PCR neg) Acute pancreatitis -CT abd/p: Very limited assessment of the GI tract, due to lack of enteric contrast. Markedly distended fluid, gas, and food filled stomach. Etiology/significance uncertain. Gastric outlet obstruction not completely excludable, although no definite obstructive lesion is demonstrated. Mild distal esophageal wall thickening, could indicate esophagitis. No evidence of small bowel obstruction. Nonobstructive left lower pole intrarenal calculus. Minimal basilar pulmonary dependent atelectatic changes -Abd US : Negative for gallstones, dilated bile ducts or other acute or significant abnormality Debris within the bladder. This is a nonspecific finding. Incidental finding right renal cyst Afebrile Leukocytosis, SP -u/a neg UDS + amphetamines, THC polysubstance use (meth and THC) R nephrolithiasis tobacco abuse Plan: -Continue to monitor off abx -04/09: Ciprofloxacin x1, Flagyl x1 -f/u cx -Monitor CBC/CMP, temperatures -GI f/u Thank you for consulting [facility]. Will continue to follow along with you. Discussed with RN. Subjective Allergies: Coded Allergies: No Known Allergies (Unverified , 04/09/20) afebrile off abx Objective Last 24 Hour Vital Signs Date Time Temp Pulse Resp B/P (MAP) Pulse Ox O2 Delivery O2 Flow Rate FiO2 04/11/20 09:00 Room Air 04/11/20 04:00 98.0 68 20 123/69 (87) 95 04/11/20 00:00 97.9 75 20 115/71 (86) 98 04/10/20 21:00 Room Air Height (Feet): 5 Height (Inches): 11.00 Weight (Pounds): 140 GENERAL: Lethargic in bed, not really answering questions. CARDIOVASCULAR: No murmur. LUNGS: Distant and clear. ABDOMEN: Bowel sounds positive. Nontender, nondistended. EXTREMITIES: No cyanosis, clubbing, or edema. NEUROLOGIC: Patient moves all extremities, slightly weak. Microbiology Date/Time Source Procedure Growth Status 04/09/20 14:14 Rectum VRE Culture - Final Enterococcus Faecalis - Vre Complete 04/09/20 14:14 Rectum - Final NO CARBAPENEM-RESISTANT ENTEROBACTERI... Complete 04/09/20 14:14 Nasal Nares MRSA Culture - Final NO METHICILLIN RESISTANT STAPH AUREUS... Complete 04/09/20 09:35 Nasopharynx SARS-CoV-2 RdRp Gene Assay - Final Complete Laboratory Tests Test 04/11/20 10:35 White Blood Count 7.8 K/UL (4.8-10.8) Red Blood Count 4.57 M/UL (4.70-6.10) L Hemoglobin 15.0 G/DL (14.2-18.0) Hematocrit 43.9 % (42.0-52.0) Mean Corpuscular Volume 96 FL (80-99) Mean Corpuscular Hemoglobin 32.7 PG (27.0-31.0) H Mean Corpuscular Hemoglobin Concent 34.1 G/DL (32.0-36.0) Red Cell Distribution Width 13.7 % (11.6-14.8) Platelet Count 478 K/UL (150-450) H Mean Platelet Volume 5.2 FL (6.5-10.1) L Neutrophils (%) (Auto) 67.2 % (45.0-75.0) Lymphocytes (%) (Auto) 22.8 % (20.0-45.0) Monocytes (%) (Auto) 7.5 % (1.0-10.0) Eosinophils (%) (Auto) 1.7 % (0.0-3.0) Basophils (%) (Auto) 0.9 % (0.0-2.0) Sodium Level 137 MMOL/L (136-145) Potassium Level 3.9 MMOL/L (3.5-5.1) Chloride Level 100 MMOL/L (98-107) Carbon Dioxide Level 30 MMOL/L (21-32) Anion Gap 7 mmol/L (5-15) Blood Urea Nitrogen 15 mg/dL (7-18) Creatinine 0.9 MG/DL (0.55-1.30) Estimat Glomerular Filtration Rate > 60 mL/min (>60) Glucose Level 108 MG/DL (74-106) H Calcium Level 8.7 MG/DL (8.5-10.1) Total Bilirubin 0.2 MG/DL (0.2-1.0) Aspartate Amino Transf (AST/SGOT) 14 U/L (15-37) L Alanine Aminotransferase (ALT/SGPT) 18 U/L (12-78) Alkaline Phosphatase 89 U/L (46-116) Total Protein 6.1 G/DL (6.4-8.2) L Albumin 3.1 G/DL (3.4-5.0) L Globulin 3.0 g/dL Albumin/Globulin Ratio 1.0 (1.0-2.7) Amylase Level 224 U/L (25-115) H Lipase 1203 U/L (73-393) H Current Medications Medications (Trade) Dose Ordered Sig/Elmo Route PRN Reason Start Time Stop Time Status Last Admin Dose Admin Dextrose/Sodium Chloride 1,000 ml @ 60 mls/hr [id number] IV 04/09/20 17:15 05/09/20 17:14 04/09/20 17:39 Haloperidol Lactate (Haldol) 5 mg Q6H PRN IM Agitation 04/10/20 20:00 05/25/20 19:59 Heparin Sodium (Porcine) (Heparin 5000 units/ml) 5,000 units EVERY 12 HOURS SUBQ 04/09/20 21:00 05/24/20 20:59 Lorazepam (Ativan) 2 mg Q6H PRN ORAL For Anxiety 04/10/20 20:00 04/17/20 19:59 Morphine Sulfate (Morphine Sulfate) 2 mg Q4H PRN IVP For Pain 04/09/20 17:15 04/16/20 17:14 Ondansetron HCl (Zofran) 4 mg Q4H PRN IVP Nausea & Vomiting 04/09/20 17:15 05/09/20 17:14 Pantoprazole (Protonix) 40 mg EVERY 12 HOURS IVP 04/09/20 21:00 05/09/20 20:59 Risperidone (RisperDAL) 2 mg BEDTIME ORAL 04/10/20 21:00 05/25/20 20:59 Jaz Crockett M.D. Apr 11, 2020 17:12
[2020-04-11] MEDS ORDERED: D5 1/2NS 1000ml IV ONE (17:49)
--- NOTE | 2020-04-12 23:53 | Psychiatric Progress Note ---
Psychiatry Progress Note Psychiatry Progress Note Neurological/Psychiatric: Reports: anxiety, depressed, emotional problems Allergies: Coded Allergies: No Known Allergies (Unverified , 04/09/20) Objective Data Height (Feet): 5 Height (Inches): 11.00 Weight (Pounds): 140 General Appearance: lethargic Additional Comments: Alert, oriented to self, place. Mood is angry. Affect is blunted, congruent with mood. Thought process is concrete. Thought content, no suicidal or homicidal ideation. Cognition is impaired. Insight and judgment limited. ASSESSMENT: [place] I Substance use disorder. Polysubstance dependence. Psychotic disorder [place] II Deferred. [place] III As above. [place] IV Low. [place] V 20. PLAN: 1. We will start the patient on risperidone. 2. Provide the patient with reality orientation and supportive therapy. Assessment/Plan Status: unchanged Sourav Smith MD Apr 12, 2020 23:53
--- NOTE | 2020-04-15 09:15 | Discharge Summary ---
Discharge Summary Discharge Summary _ DATE OF ADMISSION: 05/06/2020 DATE OF DISCHARGE: 04/11/2020 DISCHARGED BY: Dr. Conway REASON FOR ADMISSION: 44 years old male with past medical history of polysubstance abuse, presented to emergency department with diffuse abdominal pain after eating [place] food the night before. Patient woke up in the morning with epigastric pain with associated nausea and copious nonbloody diarrhea and nonbloody nonbilious vomiting. Patient reported smoking meth in order to alleviate pain . He denied fever. No hematuria or flank pain. No melena or hematochezia. No shortness of breath or cough. No chest pain. Troponin negative, EKG revealed sinus rhythm no acute ischemic changes. Laboratory work-up revealed leukocytosis WBC 20.7, stable hemoglobin and hematocrit. Stable electrolytes and renal parameters. Lipase 1056. Urinalysis revealed +1 protein, +1 ketones , no evidence of urinary tract infection. Urine toxicology screen was positive for amphetamine and marijuana. Rapid COVID-[address] scan of the abdomen and pelvis revealed markedly distended fluid, gas and food-filled stomach. Gastric outlet obstruction was not completely excluded ; no definite obstructive lesion was demonstrated. Mild distal esophageal wall thickening , possibly indicative indicative of e sophagitis. No evidence of small bowel obstruction. Nonobstructive left lower pole intrarenal calculus In emergency department patient received IV fluids , empiric antibiotic, antiemetic,analgesics,and admitted for further management. CONSULTANTS: ID specialist Dr Crockett GI specialist Dr. Weaver psychiatrist [facility] COURSE: Patient admitted to medical surgical floor. Patient was kept n.p.o. and provided with IV hydration. GI specialist closely followed. Patient subsequently undergone abdominal ultrasound , which revealed no gallstones, dilated bile duct or other acute or significant abnormality. Debris within the bladder was a nonspecific finding. Right renal cyst. Pain management was addressed. Patient started on PPI twice a day. Lipase and amylase followed. LFT and bilirubin remained stable Patient slowly started on diet and was advanced as tolerated . Antiemetic provided as needed. ID specialist followed. Leukocytosis resolved. Rapid COVID-19 in emergency department was negative. No fevers. ID specialist recommended to keep patient off antibiotics. Psychiatrist followed. Patient started on risperidone. Patient was provided with reality orientation and supportive therapy. Patient was able to tolerate diet; pain , nausea and vomiting resolved. Patient was counseled on abstinence from the illicit street drugs. Patient was stable for discharge home FINAL DIAGNOSES: Acute pancreatitis gastroenteritis Nausea and vomiting Polysubstance abuse methamphetamine marijuana Substance use disorder Polysubstance dependency Psychotic disorder Left nephrolithiasis Right renal cyst DISCHARGE MEDICATIONS: See Medication Reconciliation list. DISCHARGE INSTRUCTIONS: Patient was discharged home. Follow-up with a primary care provider in 1 week. I have been assigned to dictate discharge summary for this account. I was not involved in the patient's management. Steffi Rao NP Apr 15, 2020 09:15
== END 2020-04-11 17:50 | disposition home or self-care (01) | DRG 282 ==
LOC: EDBD 09:18 → EMR 09:45 → 4E 12:43 → EDBEDREQ 15:21 → 4E 18:00
DX: K85.90 Acute pancreatitis without necrosis or infection, unspecified (principal); K31.1 Adult hypertrophic pyloric stenosis; F15.10 Other stimulant abuse, uncomplicated; F12.10 Cannabis abuse, uncomplicated; K52.9 Noninfective gastroenteritis and colitis, unspecified; N39.0 Urinary tract infection, site not specified; K20.90 Esophagitis, unspecified without bleeding; N20.0 Calculus of kidney; F17.200 Nicotine dependence, unspecified, uncomplicated; N28.1 Cyst of kidney, acquired; F29 Unspecified psychosis not due to a substance or known physiological condition
CPT/HCPCS: 36415; 74176; 76700; 80053; 80061; 80307; 81003; 82150; 82550; 83690; 84484; 85007; 85025; 85610; 85730; 87081; 93005; 96361; 96374; 96375; 96376; 99285; J2405; J7030; U0002